=== PATIENT | female | born 1975 | race Caucasian/White ===

== ENCOUNTER 2017-08-22 19:11 | Emergency (ER) | payer OTHER ==
[~2017-08-22] VITALS: Ht 167.6 cm; Wt 136.1 kg
--- NOTE | 2017-08-22 20:14 | ED GENERAL ADULT ---
History of Present Illness General Chief Complaint: Epistaxis/Nasal Foreign Body Stated Complaint: BIBA FOR ?BLOODY NOSE Source: patient Exam Limitations: no limitations Vital Signs & Intake/Output Vital Signs & Intake/Output Vital Signs Date Time Temp Pulse Resp B/P B/P Pulse O2 O2 Flow FiO2 Mean Ox Delivery Rate 08/22 1953 98.1 101 18 130/94 96 Room Air Allergies Coded Allergies: No Known Allergies (08/22/17) Triage Note: RECEIVED 42 YO FEMALE WITH MOTHER PRESENTS TO THE ED WITH C/O SEVERE ANXIETY, WORSENING, AND DEPRESSION. PT VERY TEARFUL IN TRIAGE. PT ALSO REPORTS INTERMITTENT NOSE BLEED, STOPPED WHEN EMS ARRIVED. PT BIBA. WHEN ASKED IF SHE IS SUICICAL, PT RESPONDED i WOULDN'T, BUT I JUST DONT WANT TO BE HERE ANYMORE. Triage Nurses Notes Reviewed? yes Onset: Gradual Duration: week(s):, waxing and waning Timing: recent history Injury Environment: home Severity: moderate : No Patient currently breastfeeds: No HPI: 42 yo woman with chronic pain presents with 2 issues. First, she had an episode of bloody nose that lasted several minutes and self resolved. Per mom, "it just came pouring out... but then it stopped.... she gets these from time to time when she is upset." Second, she notes that she is "stressed out.... I don't have any money... I have 3 kids... My mom has to support me... It's really hard." She denies SI/HI/drug abuse. She has not yet seen any therapist or supportive services and hasn't tried antidepressants. She is otherwise well. Past History Travel History Traveled to [place] past 21 day No Medical History Any Pertinent Medical History? see below for history Neurological: NONE EENT: NONE Cardiovascular: NONE Respiratory: NONE Gastrointestinal: NONE Hepatic: NONE Renal: NONE Musculoskeletal: chronic back pain Psychiatric: anxiety, depression Endocrine: NONE Blood Disorders: NONE Cancer(s): NONE Surgical History Surgical History: non-contributory Psychosocial History What is your primary language Khmer Tobacco Use: Never used Family History Hx Contributory? No Review of Systems Review of Systems Constitutional: Reports: no symptoms. EENTM: Reports: no symptoms. Respiratory: Reports: no symptoms. Cardiovascular: Reports: no symptoms. GI: Reports: no symptoms. Genitourinary: Reports: no symptoms. Musculoskeletal: Reports: no symptoms. Skin: Reports: no symptoms. Neurological/Psychological: Reports: no symptoms. Hematologic/Endocrine: Reports: no symptoms. Immunologic/Allergic: Reports: no symptoms. All Other Systems: Reviewed and Negative Physical Exam Physical Exam General Appearance: well developed/nourished, mild distress Head: atraumatic, normal appearance Eyes: Bilateral: normal appearance. Ears, Nose, Throat: moist blood on medial aspect of left nare. no active bleeding. Neck: normal inspection Respiratory: no respiratory distress Extremities: normal inspection Neurologic/Psych: tearful, anxious, denies SI/HI when asked repeatedly. Skin: intact, normal color Core Measures ACS in differential dx? No CVA/TIA Diagnosis: No Sepsis Present: No Sepsis Focused Exam Completed? No Progress Differential Diagnoses I considered the following diagnoses in my evaluation of the patient: depression, acute adjustment reaction epistaxis - anterior vs posterior Plan of Care: Current Medications Sig/Manuela Start time Last Medication Dose Stop Time Status Admin Lorazepam 1 MG ONE ONE 08/22 2029 UNVr (Ativan) 08/22 2030 Acetaminophen 650 MG Q4P PRN 08/22 2014 UNVr 08/22 (Tylenol) 2019 Initial ED EKG: none Departure Departure Disposition: HOME OR SELF CARE Condition: Stable Clinical Impression Primary Impression: Depression Secondary Impressions: Bleeding nose, Stress Referrals: Unknown (PCP) Departure Forms: Customer Survey General Discharge Information Comments 08/22/17, 20:30... discussed at length with patient and her mother.... pt feels comfortable going home... she denies HI/SI. Her mother is a strong support. She will follow up with ENT and with care. Critical Care Note Critical Care Note Critical Care Time: non-applicable
[2017-08-22 21:06] VITALS: BP 128/82
== END 2017-08-22 21:06 ==
LOC: ERH 19:11
DX: F32.9 Major depressive disorder, single episode, unspecified (principal); F43.9 Reaction to severe stress, unspecified; R04.0 Epistaxis